=== PATIENT | female | born 1975 | race Hispanic/Latino ===

== ENCOUNTER 2024-05-22 12:29 | Emergency (ER) | payer BC, OTHER ==
[~2024-05-22] VITALS: Ht 162.6 cm; Wt 65.5 kg
[2024-05-22] MEDS ORDERED: IOPAMIDOL 370 MG/ML 100 ML INFUS..BTL INJ ONE (13:08)
[2024-05-22] MEDS: FAMOTIDINE 20 MG/2 ML VIAL IV ONE (13:16)
[2024-05-22] MEDS: LACTATED RINGER'S 1,000 ML INJ ONE (13:16)
[2024-05-22] MEDS: ONDANSETRON HCL INJ 2MG/ML 2ML 2 MG/ML VIAL IV ONE (13:17)
[2024-05-22] MEDS: KETOROLAC TROMETHAMINE 30 MG/ML VIAL IV ONE (13:17)
[2024-05-22] MEDS ORDERED: MAALOX MAXIMUM355 ML PO (14:21)
[2024-05-22] MEDS ORDERED: OMEPRAZOLE40 MG PO (14:21)
[2024-05-22] MEDS ORDERED: ONDANSETRON ODT4 MG PO (14:21)
[2024-05-22 14:26] VITALS: PULSE 71; RESP 16; TEMP 98.3; O2SAT 100
== END 2024-05-22 14:26 | disposition home or self-care (01) ==
LOC: FSED 12:32
DX: R10.12 Left upper quadrant pain (principal); K52.9 Noninfective gastroenteritis and colitis, unspecified; K21.9 Gastro-esophageal reflux disease without esophagitis
CPT/HCPCS: 74177; 80048; 80076; 81003; 81025; 85025; 96374; 96375; 99284; J1885; J2405; J7121; Q9967